=== PATIENT | male | born 1960 | race Caucasian/White ===

== ENCOUNTER 2019-09-19 10:51 | Emergency (ER) | payer OTHER ==
[~2019-09-19] VITALS: Ht 175.3 cm; Wt 74.8 kg
[~2019-09-19 10:51] MED LIST: ACETAMINOPHEN-1 EAC1 PO; AMBEREN; AVELOX400 MG PO; BACTRIM DS TAB1 EACH PO; FLEXERIL PO; FLONASE 0.05%50 MCG NS; HYDROCODON-ACE1 EAC7 PO; LISINOPRIL10 MG PO; MEDROLDOSEPACK PO; NAPROSYN500 MG PO; NEXIUM; NEXIUM20 M1 PO; NEXIUM40 MG; NORCO 5-325 TA1 EACH PO; PANTOPRAZOLE SO40 M1 PO; PREDNISONE 10 M10 M1 PO; PREDNISONE 5 MG5 MG PO; SUDAFED30 MG PO; TRIBENZOR 40-11 EAC1 PO; UNKNOWN DIURETIC; VICODIN 5-5001 EACH PO
[2019-09-19] MEDS ORDERED: LIPITOR 20 MG T20 M1 PO (11:11)
[2019-09-19] MEDS ORDERED: ATIVAN1 M1 PO (12:57)
[2019-09-19 13:25] VITALS: BP 132/77
== END 2019-09-19 13:26 | disposition home or self-care (01) ==
LOC: M.ERS 10:51
DX: S01.81XA Laceration without foreign body of other part of head, initial encounter (principal); M25.572 Pain in left ankle and joints of left foot; M25.552 Pain in left hip; I10 Essential (primary) hypertension; F17.210 Nicotine dependence, cigarettes, uncomplicated; Z88.0 Allergy status to penicillin; Z88.6 Allergy status to analgesic agent; W10.9XXA Fall (on) (from) unspecified stairs and steps, initial encounter; Y93.89 Activity, other specified; Y92.89 Other specified places as the place of occurrence of the external cause; Y99.8 Other external cause status